=== PATIENT | male | born 1970 | race Two or more races ===

== ENCOUNTER 2019-09-25 16:20 | Emergency (ER) | payer SELFPAY ==
[~2019-09-25] VITALS: Ht 177.8 cm; Wt 97.5 kg
[2019-09-25 16:35] VITALS: BP 155/96
[2019-09-25] MEDS ORDERED: METHOCARBAMOL 500 MG TAB PO ONE (17:15)
[2019-09-25] MEDS ORDERED: KETOROLAC TROMETH 60MG/2ML VIAL IM ONE (17:15)
[2019-09-25] MEDS ORDERED: methylPREDNISolone SOD SUCC 125 MG/2 ML VL IM ONE (17:15)
== END 2019-09-25 17:24 | disposition home or self-care (01) ==
LOC: ER 16:20
DX: M54.16 Radiculopathy, lumbar region (principal)
CPT/HCPCS: 96372; 99284; J1885; J2930

== ENCOUNTER 2023-01-04 15:39 | Emergency (ER) | payer SELFPAY ==
[~2023-01-04] VITALS: Ht 175.3 cm; Wt 100.2 kg
[2023-01-04 15:46] VITALS: BP 138/80; PULSE 82; RESP 18; O2SAT 97
== END 2023-01-04 20:04 | disposition left against medical advice (07) ==
LOC: ER 15:39
DX: S51.851A Open bite of right forearm, initial encounter (principal); Z53.21 Procedure and treatment not carried out due to patient leaving prior to being seen by health care provider; W54.0XXA Bitten by dog, initial encounter; Y93.89 Activity, other specified; Y92.89 Other specified places as the place of occurrence of the external cause; Y99.8 Other external cause status